=== PATIENT | male | born 1995 | race Caucasian/White ===

== ENCOUNTER 2019-03-09 21:24 | Emergency (ER) | payer MEDICAID ==
[~2019-03-09] VITALS: Ht 170.2 cm; Wt 71.8 kg
[2019-03-09 21:29] VITALS: Ht 170.2 cm; Wt 71.8 kg
[2019-03-10 01:00] VITALS: BP 110/60
== END 2019-03-10 01:00 | disposition home or self-care (01) ==
LOC: ED 21:24
DX: I10 Essential (primary) hypertension (principal); Z76.0 Encounter for issue of repeat prescription; K21.9 Gastro-esophageal reflux disease without esophagitis